=== PATIENT | male | born 1995 | race Caucasian/White ===

== ENCOUNTER 2017-06-15 12:53 | Emergency (ER) | payer SELFPAY ==
[2017-06-15 13:03] VITALS: BP 133/84
--- NOTE | 2017-06-15 13:31 | DR.GENAD ---
HPI - PCP Primary Care Physician: jessica delcid - Complaint/Symptoms Chief Complaint Doctors Comments: Patient states that he has had pain on his right buttock for one week. This is a reoccuring condition. He had one last year. Chief Complaint:: "cyst on pt lower back around [place]" - Source History Provided: Patient - Mode of Arrival Mode of Arrival: Ambulatory - Timing Onset of Chief Complaint: 06/14/17 PMH - PMH Past Medical History: Yes Past Medical History: Hypertension Past Medical History Comment: [place] Past Surgical History: Yes Surgical History: Tonsillectomy - Family History History of Family Medical Conditions: Yes Family Medical History: Diabetes Mellitus, Cancer, [place], Coronary Artery Disease, Hypertension - Social History Does patient currently use any type of tobacco product: Yes Have you used tobacco products in the last 12 months: Yes Type of Tobacco Use: Smokeless How many years tobacco product used: 4 Does any household member use tobacco: No Alcohol Use: None Do you use any recreational Drugs:: No Lives With: Family Lives Where: Home - infectious screening In the last 2 months have you had wt loss of >10#?: NO Have you had fever, night sweats or hemotysis?: No Have you traveled outside the country in the last 6 months?: No Isolation: Standard ROS - Review of Systems Eyes: No Symptoms Reported ENTM: No Symptoms Reported Respiratoy: No Symptoms Reported Cardiovascular: No Symptoms Reported Gastrointestinal/Abdominal: No Symptoms Reported Genitourinary: No Symptoms Reported Neurological: No Symptoms Reported Musculoskeletal: Other (buttock right gulteal foldl inferior a non erythemamtous tender spot, non fluctuant.) Integumentary: No Symptoms Reported Hematologic/Lymphatic: No Symptoms Reported Endocrine: No Symptoms Reported Psychiatric: No Symptoms Reported All Other Systems: Reviewed and Negative PE - Vital Signs Vitals: Temperature 97 F Pulse Rate 100 Respiratory Rate 18 Blood Pressure 133/84 O2 Sat by Pulse Oximetry 99 - General Limitations: No Limitations General Appearance: Alert, In No Apparent Distress - Head Head Exam: Normal Inspection, Atraumatic - Eyes Eye exam: Normal Appearance, PERRL - ENT ENT Exam: Normal Exam External Ear Exam: Normal External Inspection TM/Canal Exam: Bilateral Normal Nose Exam: Normal Nose Exam Mouth Exam: Normal Inspection Throat Exam: Normal Inspection - Neck Neck Exam: Normal Inspection - Chest Chest Inspection: Normal Inspection - Respiratory Respiratory Exam: Normal Lung Sounds Bilat Respiratory Exam: Bilateral Clear to Auscultation - Cardiovascular Cardiovascular Exam: negative: Regular Rate, Normal Rhythm, Bradycardia, Tachycardia, Irregular Rhythm, Normal Heart Sounds, Systolic Murmur, Diastolic Murmur, Rubs, Gallop, Clicks, JVD, +S1, +S2, +S3, +S4, Other - Abdominal Exam Abdominal Exam: Normal Inspection Abdominal Tenderness: negative: RUQ, RLQ, LUQ, LLQ, Epigastrium, Suprapubic, Diffuse, Mild, Moderate, Severe, Other - Discharge Plan Condition: Stable - Follow ups/Referrals Follow ups/Referrals: CARIN DELCID [Primary Care Provider] - 3 days - Instructions
[2017-06-15] MEDS ORDERED: ROCEPHIN VIAL 1 GM IM ONE (13:32)
[2017-06-15] MEDS ORDERED: ROCEPHIN VIAL 1 GM ONE (13:33)
[2017-06-15] MEDS ORDERED: XYLOCAINE 1 % (PLAIN) ONE (13:34)
== END 2017-06-15 13:46 | disposition home or self-care (01) ==
LOC: ER 13:09
DX: L02.33 Carbuncle of buttock (principal); L02.32 Furuncle of buttock
CPT/HCPCS: 96372; 99282; J0696; J2001